=== PATIENT | male | born 1960 | race Caucasian/White ===

== ENCOUNTER 2018-09-19 14:22 | Emergency (ER) | payer MEDICARE, BC ==
[2018-09-19] MEDS: OXYCODONE/ACETAMINOPHEN (5/325) TAB PO (17:12)
[2018-09-19] MEDS: KETOROLAC 30 MG INJ IM (17:12)
== END 2018-09-19 19:09 | disposition home or self-care (01) ==
LOC: E/R 14:22
DX: S33.5XXA Sprain of ligaments of lumbar spine, initial encounter (principal); R91.1 Solitary pulmonary nodule; R10.9 Unspecified abdominal pain; X58.XXXA Exposure to other specified factors, initial encounter; Y92.9 Unspecified place or not applicable; Z79.82 Long term (current) use of aspirin; Z79.84 Long term (current) use of oral hypoglycemic drugs
CPT/HCPCS: 74176; 93005; 96372; 99285-25